=== PATIENT | male | born 1975 | race Caucasian/White ===

== ENCOUNTER 2024-09-04 07:08 | Day surgery (SDC) | payer OTHER ==
[~2024-09-04] VITALS: Ht 175.3 cm; Wt 95.2 kg
[2024-09-04] VITALS (10 sets, daily range): BP systolic 108–127; BP diastolic 70–93
[~2024-09-04 07:08] MED LIST: ALL DAY ALLERGY10 M4 PO; CEFAZOLIN SODIUM 2 GM/20 ML SYR IV SCH; FLOMAX0.4 MG PO; IBLOOD GLUCOSE TEST STRIP 1 EA TEST VI PRN; LACTATED RINGER'S 1,000 ML IV SCH; LIDOCAINE HCL 1% 5 ML SDV INJ ONE
[2024-09-04] MEDS ORDERED: VESICARE10 MG PO (07:45)
[2024-09-04] MEDS ORDERED: DOCUSATE SODIU100 M1 PO (07:46)
[2024-09-04 07:55] LABS: BASOPHILS 0.9 % (0-2); BASOPHILS, ABSOLUTE 0 %; EOSINOPHILS 2.6 % (0-6); EOSINOPHILS, ABSOLUTE 0.1; HEMATOCRIT 44.5 % (35.0-50.0); HEMOGLOBIN 15.9 g/dL (12.0-18.0); LYMPHOCYTES 31.9 % (24-44); LYMPHOCYTES, ABSOLUTE 1.8; MCH 32.1 (27-36); MCHC 35.6 g/dl (30-36); MONOCYTES 8.4 % (0-12); MONOCYTES, ABSOLUTE 0.5; NEUTROPHILS 56.2 % (39-80); NEUTROPHILS, ABSOLUTE 3.1; PLATELET COUNT 226 K/uL (140-440); RBC 4.95 M/ul (4.3-5.7); RDW 14.1 (10.5-15.0)
[2024-09-04 08:09] LABS: BILIRUBIN, URINE NEGATIVE (negative); BLOOD/HGB, URINE NEGATIVE (Negative); KETONE, URINE NEGATIVE (Negative); LEUK ESTERASE, URINE NEGATIVE (negative); NITRITE, URINE NEGATIVE (negative); PH, URINE 5.5 (5-7)
[2024-09-04 08:15] LABS: BACTERIA, URINE NONE SEEN /hpf (negative); CASTS, URINE NONE SEEN \\lpf; COLLECTION TYPE, URINE CLEAN CATCH; CRYSTALS, URINE NONE SEEN (0-1+); EPITHELIAL CELLS, URINE 0 /lpf (0-1+); RED BLOOD CELLS, URINE 0-1 /hpf (0-5); REFLEX CULTURE, URINE No (No)
[2024-09-04] MEDS ORDERED: HYDROmorphone HCL 1 MG/ML SYR IV PRN (08:30)
[2024-09-04] MEDS ORDERED: ondansetron HCL 4 MG/2 ML VIAL IV PRN ×2 (08:30→13:00)
[2024-09-04] MEDS ORDERED: diphenhydrAMINE HCL 25 MG CAP PO PRN (08:30)
[2024-09-04] MEDS ORDERED: OXYCODONE/APAP 5/325 TAB PO PRN (08:30)
[2024-09-04] MEDS ORDERED: LACTATED RINGER'S 1,000 ML IV SCH (08:30)
[2024-09-04 08:34] LABS: ALBUMIN 3.5 g/dL (3.4-5.0); ALBUMIN/GLOBULIN RATIO 1.17 (1.1-2.4); BILIRUBIN, TOTAL 0.5 mg/dL (0.2-1.0); BUN/CREATININE RATIO 13.25 (6.0-28.6); CALCIUM 8.4 mg/dL (8.5-10.1); CREATININE, SERUM 0.83 mg/dL (0.70-1.30); PROTEIN, TOTAL 6.5 g/dL (6.4-8.2)
[2024-09-04] MEDS ORDERED: oxyBUTYnin chloride 5 MG TAB PO SCH (09:00)
[2024-09-04] MEDS ORDERED: LIDOCAINE HCL 2% 5 ML SDV ONE (10:42)
[2024-09-04] MEDS ORDERED: fentaNYL citrate 100 MCG/2 ML VIAL ONE (10:42)
[2024-09-04] MEDS ORDERED: MIDAZOLAM HCL 2 MG/2 ML VIAL ONE (10:42)
[2024-09-04] MEDS ORDERED: BUPIVACAINE 0.75% IN DEXTROSE 2 ML AMP ONE (10:43)
[2024-09-04] MEDS ORDERED: ondansetron HCL 4 MG/2 ML VIAL ONE (10:43)
[2024-09-04] MEDS ORDERED: MORPHINE SULFATE 1 MG/ML VIAL ONE (10:43)
[2024-09-04] MEDS ORDERED: propofoL 200 MG/20 ML VIAL ONE ×2 (10:43→12:58)
[2024-09-04] MEDS ORDERED: NALOXONE HCL 0.4 MG SYR IV PRN ×2 (13:00)
[2024-09-04] MEDS ORDERED: IBLOOD GLUCOSE TEST STRIP 1 EA TEST VI PRN (13:00)
[2024-09-04] MEDS ORDERED: fentaNYL citrate 50 MCG/ML SDV IV PRN (13:00)
--- NOTE | 2024-09-04 14:15 | NUR ---
pt to floor with luba flaherty and julio. pt awake and talkative. unable to feel feet yet, can wiggle upper legs. given FRUIT AND LUNCH BOX PT REPORTED HUNGER. URINE IN PIERRE BAG LIGHT YELLOW AND CBI AT VERY SLOW DRIP.
--- NOTE | 2024-09-04 14:18 | NUR ---
DENIES USE OF OXYGEN OR CPAP
--- NOTE | 2024-09-04 14:25 | NUR ---
09/04/24 1425 Aurea Iglesias 1319 PT ARRIVED IN PACU WIDE AWAKE WITH GUYLINE OPERATOR. 1320 CBI RUNNING WITH LIGHT PINK DRAINAGE PRESENT. 1345 SITTING UP IN BED SIPPING ON WATER. NO C/O'S. 1405 TO MS ROOM 124 VIA BED. REPORT GIVEN TO RN. 2ND GUYLINE OPERATOR IN ROOM.
--- NOTE | 2024-09-04 14:40 | NUR ---
UR CLINICAL REVIEW: [facility] [place] ME[place] EXTENDED STAY FOR TURP WITH 24 HR CBI [facility] EXTENDED STAY 09/04/24 @ 0828 ORDER MATCHES REG NO AUTH REQUIRED PER DOC GUIDELINES. RECORDS FAXED PER [facility] REQUEST DISCHARGE TO HOME IN AM WHEN CBI ID [id number] 09/05/24
[2024-09-04] MEDS ORDERED: LEVOFLOXACIN500 MG PO (14:48)
[2024-09-04] MEDS ORDERED: OXYCODONE HCL5 MG PO (14:50)
--- NOTE | 2024-09-04 15:02 | NUR ---
IVF FROM PACU DONE INFUSING, HOOKED TO LR. URINE CONTINUES TO BE LIGHT YELLOW WITH NO BLOOD NOTED.
[2024-09-04] MEDS ORDERED: HYDROXYZINE HCL50 MG PO (15:53)
[2024-09-04] MEDS ORDERED: THERA-GEL251 ML TOP (15:55)
[2024-09-04] MEDS ORDERED: NASACORT10.8 ML NAS (15:55)
--- NOTE | 2024-09-04 15:56 | NUR ---
MED REC COMPLETE
[2024-09-04] MEDS ORDERED: DOCUSATE SODIUM 100 MG CAP PO SCH (16:00)
--- NOTE | 2024-09-04 16:32 | NUR ---
ONE BAG OF CBI HAD RUN DRY AND URINE HAD A SLIGHT AMOUNT MORE COLOR, TURNED UP AND SWITCHED TO OTHER BAG.
--- NOTE | 2024-09-04 18:08 | NUR ---
IN ROOM WITH CHRISTELLE RN TO CHANGE FLUIDS ON TURP. PT SITTING IN BED EATING DINNER. PT AND EOCI PERSONNEL APPROPRIATE WITH STAFF. FLUID CHANGED OUT, CATHETER BAG DRAINED. FLUID LIGHT RED COLOR, NO CLOTS VISUALIZED. COMPLETE ASSESSMENT AND VS DONE. CALL LIGHT WITHIN REACH, NO NEEDS AT THIS TIME.
--- NOTE | 2024-09-04 19:20 | NUR ---
REPORT RECEIVED FROM CHRISTELLE MENDEZ. pt RESTING IN THE BED. BOARD UPDATED. CALL LIGHT WITHIN REACH. pt DENIES ANY OTHER NEEDS AT THIS TIME. CALL LIGHT WITHIN REACH.
[2024-09-04] MEDS ORDERED: hydrOXYzine pamoate 50 MG CAP PO SCH (21:00)
--- NOTE | 2024-09-04 21:10 | NUR ---
ASSESSMENT AND VITAL SIGNS DONE. pt CBI CLAMPED AND URINE IN THE TUBE IS PINK. 850mL OUT OF THE PIERRE. pt C/O 07/27 PAIN. PRN PAIN MEDS ADMINISTERED. SCHEDULED MEDS ADMINSITERED. CPOX ON. WATER REFRESHED. pt DENIES ANY OTHER NEEDS AT THIS TIME. CALL LIGHT WITHIN REACH.
--- NOTE | 2024-09-04 23:16 | NUR ---
pt RESTING IN THE BED WITH EYES CLOSED. RR EVEN AND UNLABORED. CALL LIGHT WITHIN REACH.
[2024-09-05] VITALS (7 sets, daily range): BP systolic 119–122; BP diastolic 74–81
--- NOTE | 2024-09-05 02:19 | NUR ---
ASSESSMENT AND VITAL SIGNS DONE. pt RESTING IN THE BED. SNACK PROVIDED. NEW BACK OF IVF INFUSING PER ORDER. pt DENIES ANY OTHER NEEDS AT THIS TIME. CALL LIGHT WITHIN REACH.
--- NOTE | 2024-09-05 03:35 | NUR ---
pt RESTING IN THE BED. pt DENIES ANY NEEDS AT THIS TIME. CALL LIGHT WITHIN REACH.
--- NOTE | 2024-09-05 06:30 | NUR ---
IN RM TO HANG pt IV ABX AND DO VITAL SIGNS. pt DENIES ANY OTHER NEEDS AT THIS TIME. URINE IS CLEAR YELLOW AT THIS TIME. CALL LIGHT WITHIN REACH.
[2024-09-05] MEDS ORDERED: CEFTRIAXONE SODIUM 1 GM in SODIUM CHLORIDE 0.9% 100 ML IV SCH (07:00)
--- NOTE | 2024-09-05 07:14 | NUR ---
VERBAL REPORT RECEIVED FROM ANDREA BALDERRAMA. PT RESTS BED AWAKE AND ALERT, CALL LIGHT IN REACH, GARDS X 2 IN ROOM, NO REQUESTS AT THIS TIME.
--- NOTE | 2024-09-05 10:35 | NUR ---
Called and spoke with Bryan. Updated I am faxing orders, surgery report, and RX. Read the dc orders and updated medications. She will call me when the fax arrives and ok the orders.
--- NOTE | 2024-09-05 10:58 | NUR ---
Called [facility] to check if faxed orders were received. They have the orders. They ask report to be called in 15 min. Pt may dc back to [facility].
--- NOTE | 2024-09-05 11:15 | NUR ---
DISCUSSED DISCHARGE INSTRUCTIONS WITH PT, PT VERBLIZES UNDERSTANDING. WRITTEN MATERIAL AND INSTRUCTIONS PROVIDED TO LEX. VSS. IV REMOVED, TIP INTACT, GAUZE AND COBAN DRESSING APPLIED TO SITE, PT TOLERATED WELL. PIERRE DRAINS ORANGE URINE. PT ASSISTED TO DRESS BY LEX. PT LEAVES UNIT VIA WHEELCHAIR ESCORTED BY LEX.
--- NOTE | 2024-09-05 11:40 | NUR ---
TELEPHONE REPORT PROVIDED TO NURSE JOHNSON AT [facility].
--- NOTE | 2024-09-07 11:37 | PATH ---
[facility] [address] [facility] [place], [place] [address] Signed SPECIMEN(S): A PROSTATE CHIPS SPECIMEN SOURCE: Jim. PROSTATE CHIPS CLINICAL HISTORY: BPH with LUTS FINAL PATHOLOGIC DIAGNOSIS: Prostate, TURP: - Prostatic tissue with prominent stroma and mild chronic prostatitis. - Negative for malignancy. SDL MICROSCOPIC EXAMINATION: Histologic sections of all submitted blocks are examined by light microscopy. These findings, together with the gross examination, support the pathologic diagnosis. GROSS DESCRIPTION: The specimen, labeled and designated "Alycia prostate abebe," is received in formalin and consists of multiple fragments of pink-bucio soft and rubbery tissue (2.1 g, 3.2 x 3.2 x 0.9 cm in aggregate). The specimen is submitted entirely in cassette (A1-A2). VB (under the direct supervision of a pathologist) The Gross Description was prepared using a voice recognition system. The report was reviewed for accuracy; however, sound-alike word errors, addition and/or deletions may occur. If there are any questions about this report, please contact Client Services. ADDITIONAL NOTES: Immunohistochemical and/or in situ hybridization studies if performed in this case included appropriate positive controls that reacted as expected. This test was developed and its performance characteristics determined by [facility]. It has not been cleared or approved by the U.S. Food and Drug Administration. The FDA has determined that such clearance or approval is not necessary. This test is used for clinical purposes. It should not be regarded as investigational or for research. [facility] is certified under the Clinical Laboratory Improvement Amendments of 1988 (CLIA) as qualified to perform high complexity clinical PATIENT NAME: JAHAIRA MCCRACKEN PATHOLOGY DATE OF : 77 REPORT #: [id number] PHYSICIAN: SOCORRO HICKS PCP: CHELSEA SHINE REPORT IS CONFIDENTIAL AND NOT TO BE RELEASED WITHOUT AUTHORIZATION [address] [place] [address] [place], [place] [address] Signed laboratory testing. PERFORMING LABORATORY: Technical component was performed by [facility], [address] [place] [id number] (CLIA# [id number]). Professional interpretation was performed by [facility] - Located within [facility], [address] [place] [phone] (CLIA#: [id number]). Diagnostician: Li Fabian MD Pathologist Electronically Signed 09/07/2024 Copies: ~ PATIENT NAME: JAHAIRA MCCRACKEN PATHOLOGY DATE OF : 77 REPORT #: [id number] PHYSICIAN: SOCORRO HICKS PCP: CHELSEA SHINE REPORT IS CONFIDENTIAL AND NOT TO BE RELEASED WITHOUT AUTHORIZATION
== END 2024-09-05 11:15 | disposition home or self-care (01) ==
LOC: DS 07:08 → MS 14:00 → DS 09-05 11:15
PROVIDERS: ATTEND Urology
PROC: 0T7D8ZZ Dilation of Urethra, Via Natural or Artificial Opening Endoscopic (ICD-10-PCS; 2024-09-04)
PROC: 0VT08ZZ Resection of Prostate, Via Natural or Artificial Opening Endoscopic (ICD-10-PCS; principal; 2024-09-04 10:10)
DX: N40.1 Benign prostatic hyperplasia with lower urinary tract symptoms (principal); N13.8 Other obstructive and reflux uropathy; N41.1 Chronic prostatitis; N32.89 Other specified disorders of bladder; R39.14 Feeling of incomplete bladder emptying; R35.0 Frequency of micturition; R35.1 Nocturia; Z79.899 Other long term (current) drug therapy; Z98.890 Other specified postprocedural states
CPT/HCPCS: 00914; 36415; 51700; 80053; 81001; 85025; 96360; 96361; 96374; C1713; C1769; J0690; J0696; J2003; J2250; J2274; J2405; J2704; J3010; J7121